=== PATIENT | male | born 1970 | race African-American/Black ===

== ENCOUNTER 2017-09-27 23:07 | Inpatient (IN) | payer BC ==
[~2017-09-27] VITALS: Ht 190.5 cm; Wt 100.0 kg
[2017-09-27 23:23] VITALS: BP 128/90; PULSE 107; RESP 22; TEMP 98.2; O2SAT 100
[2017-09-28] VITALS (8 sets, daily range): BP systolic 105–150; BP diastolic 62–92; PULSE 60–90; RESP 16–18; O2SAT 95–99
[2017-09-28] MEDS ORDERED: SODIUM CHLOR 0.9% 1000 ML INJ 1,000 ML IV ONE
[2017-09-28] MEDS ORDERED: KETOROLAC TROMETHAMINE 30 MG/ML (IVP) VIAL IV PUSH ONE
[2017-09-28 00:18] LABS: AUTOMATED NEUTROPHIL # 4.9 TH/MM3 (1.8-7.7); BASOPHIL % 0.4 % (0.0-2.0); EOSINOPHIL % 0.3 % (0.0-4.0); HEMATOCRIT 39.2 % (39.0-51.0); LYMPHOCYTE # 2.3 TH/MM3 (1.0-4.8); MEAN CELL VOLUME 84.5 FL (80.0-100.0); MEAN CORPUSCULAR HGB CONC 33.2 % (32.0-36.0); MEAN PLATELET VOLUME 8.4 FL (7.0-11.0); MONO % 9.6 % (0.0-8.0); MONOCYTE # 0.8 TH/MM3 (0-0.9); NEUT % 60.7 % (16.0-70.0); PLATELET COUNT 189 TH/MM3 (150-450); RED BLOOD COUNT 4.63 MIL/MM3 (4.50-5.90); RED CELL DISTRIBUTION WIDTH 13.8 % (11.6-17.2)
[2017-09-28 00:30] LABS: BILIRUBIN, URINE NEG (NEG); BLOOD, URINE MOD (NEG); GLUCOSE,URINE 70 mg/dL (NEG); KETONE, URINE TRACE mg/dL (NEG); MUCUS URINE FEW /lpf (OCC); NITRITE,URINE NEG (NEG); SQUAMOUS EPITHELIAL CELL URINE <1 /hpf (0-5); URINE COLOR YELLOW (YELLW/STRAW); URINE LEUKOCYTE ESTERASE NEG (NEG)
[2017-09-28] MEDS ORDERED: MORPHINE SULFATE 4 MG/ML INJ IV PUSH ONE ×2 (00:45)
[2017-09-28 00:56] LABS: ALBUMIN 4.1 GM/DL (3.4-5.0); ALT (GPT) 36 U/L (12-78); AST (GOT) 24 U/L (15-37); BICARBONATE 26.1 MEQ/L (21.0-32.0); BLOOD UREA NITROGEN 12 MG/DL (7-18); CALCIUM 9.1 MG/DL (8.5-10.1); CHLORIDE 103 MEQ/L (98-107); GLOMERULAR FILTRATION RATE 65 ML/MIN (>89); GLUCOSE,RANDOM 169 MG/DL (74-106); SODIUM (NA) 140 MEQ/L (136-145)
[2017-09-28 00:59] LABS: ALKALINE PHOSPHATASE 81 U/L (45-117); TOTAL BILIRUBIN ADULT 0.5 MG/DL (0.2-1.0); TOTAL PROTEIN 7.9 GM/DL (6.4-8.2)
--- NOTE | 2017-09-28 01:12 | RADRPT ---
EXAM DATE/TIME: 09/28/2017 00:15 [place] COMPARISON: No previous studies available for comparison. INDICATIONS : Abdominal pain. ORAL CONTRAST: No oral contrast ingested. RADIATION DOSE: 13.22 CTDIvol (mGy) MEDICAL HISTORY : Renal calculi. SURGICAL HISTORY : None. ENCOUNTER: Initial ACUITY: 1 day PAIN SCALE: 5/10 LOCATION: abdomen TECHNIQUE: Volumetric scanning of the abdomen and pelvis was performed. Using automated exposure control and ad justment of the mA and/or kV according to patient size, radiation dose was kept as low as reasonably achievable to obtain optimal diagnostic quality images. DICOM format image data is available electro nically for review and comparison. FINDINGS: LOWER LUNGS: The visualized lower lungs are clear. LIVER: Homogeneous density without lesion. There is no dilation of the biliary tree. No calcified gallston es. SPLEEN: Normal size without lesion. PANCREAS: Within normal limits. KIDNEYS: Normal in size and shape. Bilateral, subcentimeter renal calculi. These are nonobstructing on the rig ht. On the left, there is some pelvocaliectasis and hydroureter due to 2 a 4.4 mm stone at the level of the lumbosacral junction. VASCULAR: There is no aortic aneurysm. BOWEL/MESENTERY: The stomach, small bowel, and colon demonstrate no acute abnormality. There is no free intraperitone al air or fluid. ABDOMINAL WALL: Within normal limits. RETROPERITONEUM: There is no lymphadenopathy. BLADDER: No wall thickening or mass. REPRODUCTIVE: Within normal limits. INGUINAL: There is no lymphadenopathy or hernia. MUSCULOSKELETAL: Partial sacralization of L5. Otherwise intact CONCLUSION: 1. Bilateral, multiple subcentimeter renal calculi. These are nonobstructing on the right. 2. On the left, pelvocaliectasis and hydroureter due to a 4.4 mm stone at the level of the lumbosacra l junction. Christiano Parra MD on September 28, 2017 at 1:05 Board Certified Radiologist. This report was verified electronically.
[2017-09-28] MEDS ORDERED: HYDROmorphone HCL PF 1 MG/ML VIAL IV PUSH ONE (01:45)
[2017-09-28] MEDS ORDERED: HYDROmorphone HCL PF 2 MG/ML VIAL IV PUSH ONE (02:15)
--- NOTE | 2017-09-28 02:38 | PD ---
HPI Chief Complaint: Abdominal Pain Time Seen by Provider: 23:55 Travel History International Travel<30 days: No Contact w/Intl Traveler<30days: No Traveled to known affect area: No History of Present Illness HPI Patient is a 46 year old male who comes in complaining of left sided abdominal pain. The pain started yesterday and is gotten worse. He has history of kidney stones, and says this feels similar to previous events. He has had nausea and vomiting. He denies fever chills. He says he took a pain pill, but cannot tell me what it was that he took. He localizes the pain to his left lower quadrant. He says he has been constipated. Severity is moderate to severe. PFSH Past Medical History Medical History: Denies Significant Hx Tetanus Vaccination: Unknown Influenza Vaccination: No Past Surgical History Surgical History: No Previous Surgery Social History Alcohol Use: Yes (occasionally) Tobacco Use: No Substance Use: No Allergies-Medications (Allergen,Severity, Reaction): Coded Allergies: No Known Allergies (Unverified , 09/27/17) Reported Meds & Prescriptions Reported Meds & Active Scripts Active No Active Prescriptions or Reported Medications Review of Systems Except as stated in HPI: all other systems reviewed are Neg General / Constitutional: No: Fever, Chills HENT: No: Headaches, Lightheadedness Cardiovascular: No: Chest Pain or Discomfort Respiratory: No: Shortness of Breath Gastrointestinal: Positive: Nausea, Vomiting, Abdominal Pain Genitourinary: Positive: Flank Pain Musculoskeletal: No: Myalgias, Edema Skin: No Rash, No Change in Pigmentation Neurologic: No: Weakness, Dizziness Physical Exam Narrative GENERAL: Awake and alert, moaning in pain. SKIN: Focused skin assessment warm/dry. No wounds or signs of infection. HEAD: Atraumatic. Normocephalic. EYES: Pupils equal and round. No scleral icterus. No injection or drainage. ENT: No nasal bleeding or discharge. Mucous membranes pink and moist. NECK: Trachea midline. No JVD. CARDIOVASCULAR: Regular rate and rhythm. No murmur appreciated. RESPIRATORY: No accessory muscle use. Clear to auscultation. Breath sounds equal bilaterally. GASTROINTESTINAL: Abdomen soft, non-tender, nondistended. Tender to palpation of the left side of the abdomen. Voluntary guarding. MUSCULOSKELETAL: No obvious deformities. No clubbing. No cyanosis. No edema. NEUROLOGICAL: Awake and alert. No obvious cranial nerve deficits. Motor grossly within normal limits. Normal speech. PSYCHIATRIC: Appropriate mood and affect; insight and judgment normal. Data Data Last Documented VS Vital Signs Date Time Temp Pulse Resp B/P (MAP) Pulse Ox O2 Delivery O2 Flow Rate FiO2 09/27/17 23:23 98.2 107 22 128/90 (103) 100 Orders Orders Complete Blood Count With Diff (09/27/17 23:47) Comprehensive Metabolic Panel (09/27/17 23:47) Urinalysis - C+S If Indicated (09/27/17 23:47) Iv Access Insert/Monitor (09/27/17 23:47) Oxygen Administration (09/27/17 23:47) Oximetry (09/27/17 23:47) Lipase (09/27/17 23:47) Ketorolac Inj (Toradol Inj) (09/28/17 00:00) Sodium Chlor 0.9% 1000 Ml Inj (Ns 1000 M (09/28/17 00:00) Morphine Inj (Morphine Inj) (09/28/17 00:00) Ct Abd/Pel W/O Iv Contrast (09/27/17 ) Morphine Inj (Morphine Inj) (09/28/17 00:45) Hydromorphone Pf Inj (Dilaudid Pf Inj) (09/28/17 01:45) Hydromorphone Pf Inj (Dilaudid Pf Inj) (09/28/17 02:15) Labs Laboratory Tests Test 09/27/17 23:50 White Blood Count 8.0 TH/MM3 Red Blood Count 4.63 MIL/MM3 Hemoglobin 13.0 GM/DL Hematocrit 39.2 % Mean Corpuscular Volume 84.5 FL Mean Corpuscular Hemoglobin 28.0 PG Mean Corpuscular Hemoglobin Concent 33.2 % Red Cell Distribution Width 13.8 % Platelet Count 189 TH/MM3 Mean Platelet Volume 8.4 FL Neutrophils (%) (Auto) 60.7 % Lymphocytes (%) (Auto) 29.0 % Monocytes (%) (Auto) 9.6 % Eosinophils (%) (Auto) 0.3 % Basophils (%) (Auto) 0.4 % Neutrophils # (Auto) 4.9 TH/MM3 Lymphocytes # (Auto) 2.3 TH/MM3 Monocytes # (Auto) 0.8 TH/MM3 Eosinophils # (Auto) 0.0 TH/MM3 Basophils # (Auto) 0.0 TH/MM3 CBC Comment DIFF FINAL Differential Comment Urine Color YELLOW Urine Turbidity CLEAR Urine pH 6.0 Urine Specific [place] 1.020 Urine Protein TRACE mg/dL Urine Glucose (UA) 70 mg/dL Urine Ketones TRACE mg/dL Urine Occult Blood MOD Urine Nitrite NEG Urine Bilirubin NEG Urine Urobilinogen LESS THAN 2.0 MG/DL Urine Leukocyte Esterase NEG Urine RBC 114 /hpf Urine WBC 3 /hpf Urine Squamous Epithelial Cells <1 /hpf Urine Mucus FEW /lpf Microscopic Urinalysis Comment CULT NOT INDICATED Blood Urea Nitrogen 12 MG/DL Creatinine 1.20 MG/DL Random Glucose 169 MG/DL Total Protein 7.9 GM/DL Albumin 4.1 GM/DL Calcium Level 9.1 MG/DL Alkaline Phosphatase 81 U/L Aspartate Amino Transf (AST/SGOT) 24 U/L Alanine Aminotransferase (ALT/SGPT) 36 U/L Total Bilirubin 0.5 MG/DL Sodium Level 140 MEQ/L Potassium Level 3.5 MEQ/L Chloride Level 103 MEQ/L Carbon Dioxide Level 26.1 MEQ/L Anion Gap 11 MEQ/L Estimat Glomerular Filtration Rate 65 ML/MIN Lipase 71 U/L [facility] Medical Decision Making Medical Screen Exam Complete: Yes Emergency Medical Condition: Yes Differential Diagnosis UTI versus pyelonephritis versus dehydration versus diverticulitis versus renal stone Narrative Course Patient is a 46-year-old male who comes in complaining of left-sided abdominal pain. Exam shows tenderness to the left side of the abdomen. IV established, labs sent. Labs show no acute abnormalities. Urinalysis is positive for blood. CT abdomen and pelvis performed shows a 4 mm obstructing renal stone. Last 24 hours Impressions Abdomen/Pelvis CT 09/27/17 0000 Signed Impressions: Service Date/Time: Thursday, September 28, 2017 00:15 - CONCLUSION: 1. Bilateral , multiple subcentimeter renal calculi. These are nonobstructing on the right. 2. On the left, pelvocaliectasis and hydroureter due to a 4.4 mm stone at the level of the lumbosacral junction. Christiano Parra MD Patient given IV fluids, Toradol morphine. He continued to have pain. He was given a second dose of morphine. Patient still continued to complain of pain, given a dose of Dilaudid. Patient will be admitted due to his obstructing renal stone and inability to control his pain. Diagnosis Primary Impression: Kidney stone Admitting Information Admitting Physician Requests: Admit Scripts No Active Prescriptions or Reported Meds Ama Vincent MD Sep 28, 2017 02:38
[2017-09-28] MEDS ORDERED: SODIUM CHLOR 0.9% 1000 ML INJ 1,000 ML IV SCH (02:46)
[2017-09-28] MEDS ORDERED: SODIUM CHLORIDE 0.9% FLUSH 10 ML FLUSH IV FLUSH PRN (03:00)
[2017-09-28] MEDS ORDERED: ONDANSETRON HCL 4 MG/2 ML VIAL IVP PRN (03:00)
[2017-09-28] MEDS ORDERED: NALOXONE HCL 0.4 MG/ML AMP IV PUSH PRN (03:00)
--- NOTE | 2017-09-28 04:51 | HHI.HP ---
[facility] Service [facility] Primary Care Physician Unknown Admission Diagnosis renal stone, intractable pain Diagnoses: Travel History International Travel<30 Days: No Contact w/Intl Traveler <30 Da: No Traveled to Known Affected Are: No History of Present Illness 46-year-old male with a past medical history significant for previous kidney stones presents to emergency department for evaluation of left-sided lower abdominal/pelvic pain and nausea/vomiting. The patient reports that the pain initially began 2 days ago. He denies accompanying fever/chills. Denies chest pain or shortness of breath. No other associated symptoms. He denies dysuria. Review of Systems Except as stated in HPI: all other systems reviewed are Neg Past Family Social History Past Medical History History of kidney stones 2 Past Surgical History None Reported Medications Reported Meds & Active Scripts Active No Active Prescriptions or Reported Medications Allergies: Coded Allergies: No Known Allergies (Unverified , 09/27/17) Family History Negative for CAD/DM Social History Occasional alcohol. Denies tobacco, illicit drugs Physical Exam Vital Signs Vital Signs Date Time Temp Pulse Resp B/P (MAP) Pulse Ox O2 Delivery O2 Flow Rate FiO2 09/28/17 02:30 84 16 150/92 (111) 95 Room Air 09/27/17 23:23 98.2 107 22 128/90 (103) 100 Physical Exam GENERAL: male lying in bed SKIN: No rashes, ecchymoses or lesions. Cool and dry. HEAD: Atraumatic. Normocephalic. No temporal or scalp tenderness. EYES: Pupils equal round and reactive. Extraocular motions intact. No scleral icterus. No injection or drainage. ENT: Nose without bleeding, purulent drainage or septal hematoma. Throat without erythema, tonsillar hypertrophy or exudate. Uvula midline. Airway patent. NECK: Trachea midline. No JVD or lymphadenopathy. Supple, nontender, no meningeal signs. CARDIOVASCULAR: Regular rate and rhythm without murmurs, gallops, or rubs. RESPIRATORY: Clear to auscultation. Breath sounds equal bilaterally. No wheezes , rales, or rhonchi. GASTROINTESTINAL: Abdomen soft, exquisitely tender to palpation in the left lower quadrant and upper pelvis, nondistended. No hepato-splenomegaly, or palpable masses. No guarding. : No CVA tenderness MUSCULOSKELETAL: Extremities without clubbing, cyanosis, or edema. No joint tenderness, effusion, or edema noted. No calf tenderness. NEUROLOGICAL: Awake and alert. Cranial nerves II through XII intact. Motor and sensory grossly within normal limits. Normal speech. Laboratory Laboratory Tests Test 09/27/17 23:50 White Blood Count 8.0 Red Blood Count 4.63 Hemoglobin 13.0 Hematocrit 39.2 Mean Corpuscular Volume 84.5 Mean Corpuscular Hemoglobin 28.0 Mean Corpuscular Hemoglobin Concent 33.2 Red Cell Distribution Width 13.8 Platelet Count 189 Mean Platelet Volume 8.4 Neutrophils (%) (Auto) 60.7 Lymphocytes (%) (Auto) 29.0 Monocytes (%) (Auto) 9.6 Eosinophils (%) (Auto) 0.3 Basophils (%) (Auto) 0.4 Neutrophils # (Auto) 4.9 Lymphocytes # (Auto) 2.3 Monocytes # (Auto) 0.8 Eosinophils # (Auto) 0.0 Basophils # (Auto) 0.0 CBC Comment DIFF FINAL Differential Comment Urine Color YELLOW Urine Turbidity CLEAR Urine pH 6.0 Urine Specific [place] 1.020 Urine Protein TRACE Urine Glucose (UA) 70 Urine Ketones TRACE Urine Occult Blood MOD Urine Nitrite NEG Urine Bilirubin NEG Urine Urobilinogen LESS THAN 2.0 Urine Leukocyte Esterase NEG Urine RBC 114 Urine WBC 3 Urine Squamous Epithelial Cells <1 Urine Mucus FEW Microscopic Urinalysis Comment CULT NOT INDICATED Blood Urea Nitrogen 12 Creatinine 1.20 Random Glucose 169 Total Protein 7.9 Albumin 4.1 Calcium Level 9.1 Alkaline Phosphatase 81 Aspartate Amino Transf (AST/SGOT) 24 Alanine Aminotransferase (ALT/SGPT) 36 Total Bilirubin 0.5 Sodium Level 140 Potassium Level 3.5 Chloride Level 103 Carbon Dioxide Level 26.1 Anion Gap 11 Estimat Glomerular Filtration Rate 65 Lipase 71 Result Diagram: 09/27/17234909/27/172349 Caprini VTE Risk Assessment Caprini VTE Risk Assessment: No/Low Risk (score <= 1) Caprini Risk Assessment Model Point Value = 1 Point Value = 2 Point Value = 3 Point Value = 5 Age 41-60 Minor surgery BMI > 25 kg/m2 Swollen legs Varicose veins or History of unexplained or recurrent spontaneous Oral contraceptives or hormone replacement Sepsis (< 1 month) Serious lung disease, including pneumonia (< 1 month) Abnormal pulmonary function Acute myocardial infarction Congestive heart failure (< 1 month) History of inflammatory bowel disease Medical patient at bed rest Age 61-74 Arthroscopic surgery Major open surgery (> 45 min) Laparoscopic surgery (> 45 min) Malignancy Confined to bed (> 72 hours) Immobilizing plaster cast Central venous access Age >= 75 History of VTE Family history of VTE Factor V Leiden Prothrombin [id number] Lupus anticoagulant Anticardiolipin antibodies Elevated serum homocysteine Heparin-induced thrombocytopenia Other congenital or acquired thrombophilia Stroke (< 1 month) Elective arthroplasty Hip, pelvis, or leg fracture Acute spinal cord injury (< 1 month) Prophylaxis Regimen Total Risk Factor Score Risk Level Prophylaxis Regimen 0-1 Low Early ambulation 2 Moderate Order ONE of the following: *Sequential Compression Device (SCD) *Heparin 5000 units SQ BID 3-4 Higher Order ONE of the following medications: *Heparin 5000 units SQ TID *Enoxaparin/Lovenox 40 mg SQ daily (WT < 150 kg, CrCl > 30 mL/min) *Enoxaparin/Lovenox 30 mg SQ daily (WT < 150 kg, CrCl > 10-29 mL/min) *Enoxaparin/Lovenox 30 mg SQ BID (WT < 150 kg, CrCl > 30 mL/min) AND/OR *Sequential Compression Device (SCD) 5 or more Highest Order ONE of the following medications: *Heparin 5000 units SQ TID (Preferred with Epidurals) *Enoxaparin/Lovenox 40 mg SQ daily (WT < 150 kg, CrCl > 30 mL/min) *Enoxaparin/Lovenox 30 mg SQ daily (WT < 150 kg, CrCl > 10-29 mL/min) *Enoxaparin/Lovenox 30 mg SQ BID (WT < 150 kg, CrCl > 30 mL/min) AND *Sequential Compression Device (SCD) Assessment and Plan Assessment and Plan Assessment/plan: 1. Renal calculi/hydroureter CT of the abdomen/pelvis significant for bilateral renal calculi which are nonobstructing on the right and a 4.4 mm stone on the left with corresponding hydroureter Dilaudid for pain NPO IV fluids UA within normal limits Urology consulted, appreciate assistance FEN NPO NS at 100 cc/hr Electronically: Monitor and replete when necessary SCDs Physician Certification 2 Midnight Certification Type: Admission for Inpatient Services Order for Inpatient Services The services are ordered in accordance with Medicare regulations or non- Medicare payer requirements, as applicable. In the case of services not specified as inpatient-only, they are appropriately provided as inpatient services in accordance with the 2-midnight benchmark. Estimated LOS (days): 2 2 days is the estimated time the patient will need to remain in the hospital, assuming treatment plan goals are met and no additional complications. Post-Hospital Plan: Not yet determined Janice Thorpe MD Sep 28, 2017 04:51
[2017-09-28] MEDS: HYDROmorphone HCL PF 2 MG/ML VIAL IV PUSH PRN ×2 (05:44→10:06)
[2017-09-28] MEDS ORDERED: NS + KCL 20 MEQ INJ 1,000 ML IV SCH (08:30)
[2017-09-28] MEDS ORDERED: SODIUM CHLORIDE 0.9% FLUSH 10 ML FLUSH IV FLUSH SCH (09:00)
--- NOTE | 2017-09-28 11:22 | PD.CONS ---
HPI Service Urology Consult Requested By Dr. Baez Reason for Consult Left ureteral calculus Primary Care Physician Unknown Diagnosis: History of Present Illness 46-year-old gentleman with history nephrolithiasis who presented to emergency room with worsening left flank pain. Symptoms began approximately 2 days prior to presentation and patient describes symptoms similar to what he experienced in the past when passing a stone. Workup included a CT scan stone protocol that demonstrated mild left ureteral dilation with a 4 mm left ureteral calculus at the lumbosacral spine level. Also noted were tiny bilateral renal calculi. Patient admitted for pain management and a urology consult placed. At the time of consultation the patient's pain was adequately controlled. His last stone episode was approximately 1 year ago whereby he passed it spontaneously. Patient resides in [place] and is here visiting. Review of Systems Constitutional: DENIES: Fever, Chills Cardiovascular: DENIES: Chest pain Gastrointestinal: COMPLAINS OF: Abdominal pain (Left side) Genitourinary: DENIES: Hematuria Musculoskeletal: COMPLAINS OF: Back pain (Left flank) Except as stated in HPI: all other systems reviewed are Neg Past Family Social History Past Medical History History nephrolithiasis Past Surgical History Eyes Reported Medications Refer to EMR Allergies: Coded Allergies: No Known Allergies (Unverified , 09/27/17) Active Ordered Medications Refer to EMR Family History Reviewed and noncontributory Social History Occasional alcohol use. Denies tobacco or intravenous drug abuse. Physical Exam Vital Signs Date Time Temp Pulse Resp B/P (MAP) Pulse Ox O2 Delivery O2 Flow Rate FiO2 09/28/17 10:00 68 18 148/88 (108) 99 Room Air 09/28/17 08:27 63 18 133/81 (98) 97 Room Air 09/28/17 07:30 60 18 131/79 (96) 98 Room Air 09/28/17 05:30 90 16 139/88 (105) 99 Room Air 09/28/17 02:30 84 16 150/92 (111) 95 Room Air 09/27/17 23:23 98.2 107 22 128/90 (103) 100 Physical Exam GENERAL: This is a well-nourished, well-developed patient, in no apparent distress. SKIN: No rashes, ecchymoses or lesions. Cool and dry. HEAD: Atraumatic. Normocephalic. No temporal or scalp tenderness. EYES: Pupils equal round and reactive. Extraocular motions intact. No scleral icterus. No injection or drainage. ENT: Nose without bleeding, purulent drainage or septal hematoma. Throat without erythema, tonsillar hypertrophy or exudate. Uvula midline. Airway patent. NECK: Trachea midline. No JVD or lymphadenopathy. Supple, nontender, no meningeal signs. CARDIOVASCULAR: Regular rate and rhythm without murmurs, gallops, or rubs. RESPIRATORY: Clear to auscultation. Breath sounds equal bilaterally. No wheezes , rales, or rhonchi. GASTROINTESTINAL: Abdomen soft, non-tender, nondistended. No hepato-splenomegaly , or palpable masses. No guarding. GENITOURINARY: No CVA tenderness. Bladder not distended. MUSCULOSKELETAL: Extremities without clubbing, cyanosis, or edema. No joint tenderness, effusion, or edema noted. No calf tenderness. Negative Homans sign bilaterally. NEUROLOGICAL: Awake and alert. Cranial nerves II through XII intact. Motor and sensory grossly within normal limits. Five out of 5 muscle strength in all muscle groups. Normal speech. Lab results reviewed: Yes Laboratory Tests Test 09/27/17 23:50 White Blood Count 8.0 Red Blood Count 4.63 Hemoglobin 13.0 Hematocrit 39.2 Mean Corpuscular Volume 84.5 Mean Corpuscular Hemoglobin 28.0 Mean Corpuscular Hemoglobin Concent 33.2 Red Cell Distribution Width 13.8 Platelet Count 189 Mean Platelet Volume 8.4 Neutrophils (%) (Auto) 60.7 Lymphocytes (%) (Auto) 29.0 Monocytes (%) (Auto) 9.6 Eosinophils (%) (Auto) 0.3 Basophils (%) (Auto) 0.4 Neutrophils # (Auto) 4.9 Lymphocytes # (Auto) 2.3 Monocytes # (Auto) 0.8 Eosinophils # (Auto) 0.0 Basophils # (Auto) 0.0 CBC Comment DIFF FINAL Differential Comment Urine Color YELLOW Urine Turbidity CLEAR Urine pH 6.0 Urine Specific [place] 1.020 Urine Protein TRACE Urine Glucose (UA) 70 Urine Ketones TRACE Urine Occult Blood MOD Urine Nitrite NEG Urine Bilirubin NEG Urine Urobilinogen LESS THAN 2.0 Urine Leukocyte Esterase NEG Urine RBC 114 Urine WBC 3 Urine Squamous Epithelial Cells <1 Urine Mucus FEW Microscopic Urinalysis Comment CULT NOT INDICATED Blood Urea Nitrogen 12 Creatinine 1.20 Random Glucose 169 Total Protein 7.9 Albumin 4.1 Calcium Level 9.1 Alkaline Phosphatase 81 Aspartate Amino Transf (AST/SGOT) 24 Alanine Aminotransferase (ALT/SGPT) 36 Total Bilirubin 0.5 Sodium Level 140 Potassium Level 3.5 Chloride Level 103 Carbon Dioxide Level 26.1 Anion Gap 11 Estimat Glomerular Filtration Rate 65 Lipase 71 Result Diagram: 09/27/170 09/27/172349 Personally reviewed images: Yes Imaging Last Impressions Abdomen/Pelvis CT 09/27/17 0000 Signed Impressions: Service Date/Time: Thursday, September 28, 2017 00:15 - CONCLUSION: 1. Bilateral , multiple subcentimeter renal calculi. These are nonobstructing on the right. 2. On the left, pelvocaliectasis and hydroureter due to a 4.4 mm stone at the level of the lumbosacral junction. Christiano Parra MD Assessment and Plan Assessment and Plan Urologic impression: 1. 4 mm mid left ureteral calculus which should pass spontaneously 2. Bilateral tiny renal calculi Recommendations: 1. Flomax 0.4 mg by mouth daily until stone passes 2. Continue with analgesic support 3. Strain all urine until stone passes 4. Urologically cleared for discharge when pain managed with oral meds 5. Patient should follow-up with his established physician in [place] next week Jose Angel Delong MD Sep 28, 2017 11:22
[2017-09-28] MEDS ORDERED: TAMSULOSIN HCL 0.4 MG CAP PO SCH (11:30)
[2017-09-28] MEDS ORDERED: oxyCODONE/ACETAMINOPHEN 5 MG/325 MG TAB PO PRN ×2 (11:30)
--- NOTE | 2017-09-28 12:50 | HHI.PR ---
Subjective Remarks Follow-up renal stones. Improving left lower quadrant pain. Denies any other symptoms. He wants to go home. Discussed with RN, patient cleared for discharge if pain managed with p.o. medications. Patient aware not to drive or operate any machinery while on pain medicine. Counseled regarding narcotics Objective Vitals Vital Signs Date Time Temp Pulse Resp B/P (MAP) Pulse Ox O2 Delivery O2 Flow Rate FiO2 09/28/17 10:00 68 18 148/88 (108) 99 Room Air 09/28/17 08:27 63 18 133/81 (98) 97 Room Air 09/28/17 07:30 60 18 131/79 (96) 98 Room Air 09/28/17 05:30 90 16 139/88 (105) 99 Room Air 09/28/17 02:30 84 16 150/92 (111) 95 Room Air 09/27/17 23:23 98.2 107 22 128/90 (103) 100 I/O 09/27/17 09/27/17 09/27/17 09/28/17 09/28/17 09/28/17 07:00 15:00 23:00 07:00 15:00 23:00 Intake Total 1000 ml Output Total 200 ml Balance 1000 ml -200 ml Intake IV Total 1000 ml Output Urine Total 200 ml # Voids 1 Result Diagram: 09/27/17 2350 09/27/17 2350 Imaging Last Impressions Abdomen/Pelvis CT 09/27/17 0000 Signed Impressions: Service Date/Time: Thursday, September 28, 2017 00:15 - CONCLUSION: 1. Bilateral , multiple subcentimeter renal calculi. These are nonobstructing on the right. 2. On the left, pelvocaliectasis and hydroureter due to a 4.4 mm stone at the level of the lumbosacral junction. Christiano Parra MD Objective Remarks GENERAL: male lying in bed SKIN: No rashes, ecchymoses or lesions. Cool and dry. CARDIOVASCULAR: Regular rate and rhythm without murmurs, gallops, or rubs. RESPIRATORY: Clear to auscultation. Breath sounds equal bilaterally. No wheezes , rales, or rhonchi. GASTROINTESTINAL: Abdomen soft, exquisitely tender to palpation in the left lower quadrant and upper pelvis, nondistended. No guarding. : No CVA tenderness MUSCULOSKELETAL: Extremities without clubbing, cyanosis, or edema. No joint tenderness, effusion, or edema noted. No calf tenderness. NEUROLOGICAL: Awake and alert. Cranial nerves II through XII intact. Motor and sensory grossly within normal limits. Normal speech. Procedures none A/P Problem List: (1) Kidney stone ICD Code: N20.0 - Calculus of kidney Status: Acute Assessment and Plan Renal calculi/hydroureter. CT of the abdomen/pelvis significant for bilateral renal calculi which are nonobstructing on the right and a 4.4 mm stone on the left with corresponding hydroureter. He is stable continue observation with IV hydration, Flomax, pain management with Percocet and IV Dilaudid for breakthrough pain. Counseled regarding narcotics. Strain all urine. Outpatient follow-up with urology DVT prophylaxis with SCDs Discharge Planning Discharge patient to home Condition on discharge: Improved Regular Diet as tolerated Ad Maria Esther activity no driving Rx written: Flomax and Percocet Follow-up with primary care physician in [place] Haney MD Sep 28, 2017 12:50
[2017-09-28] MEDS ORDERED: TAMS5CAP PO (12:52)
[2017-09-28] MEDS ORDERED: OXYC1TAB63 PO (12:52)
--- NOTE | 2017-09-28 12:52 | HHI.DCPOC ---
Discharge Care Plan Your Health Problems Are: Difficulty with ADL Exercise Tolerance Goals to Promote Your Health * To prevent worsening of your condition and complications * To maintain your health at the optimal level Directions to Meet Your Goals Take your medications as prescribed Follow your dietary instruction Follow activity as directed Keep your appointments as scheduled Take your immunizations and boosters as scheduled If your symptoms worsen call your PCP, if no PCP go to Urgent Care Center or Emergency Room Smoking is Dangerous to Your Health. Avoid second hand smoke Call the 24-hour hour crisis hotline for domestic abuse at Jhonny Haney MD Sep 28, 2017 12:52
== END 2017-09-28 16:01 | disposition home or self-care (01) | DRG 694 ==
LOC: NEPC 23:07 → NEDA 09-28 03:22 → NEDH 09-28 10:01
PROVIDERS: ADMIT Internal Medicine; ATTEND Internal Medicine
DX: N20.0 Calculus of kidney (principal); N13.4 Hydroureter; Z87.442 Personal history of urinary calculi; K59.00 Constipation, unspecified
CPT/HCPCS: 74176; 80053; 81001; 83690; 85025; 96361; 96374; 96375; 96376; 99285; J1170; J1885; J2270; J2405; J3480; J7030